=== PATIENT | male | born 1965 | race African-American/Black ===

== ENCOUNTER 2019-10-19 02:54 | Emergency (ER) | payer MEDICARE, OTHER ==
[2019-10-19 03:30] LABS: #Eosinphils 0.1 thou/uL (0.0-0.7); #Lymphocytes 1.6 thou/uL (1.20-3.40); #Monocytes 0.7 thou/uL (0.11-0.59); %Basophils 0.2 % (0.0-1.0); %Eosinophils 0.8 % (0.0-10.0); %Lymphocytes 19.1 % (21.0-51.0); %Monocytes 8.1 % (0.0-10.0); %Neutrophils 71.8 % (42.0-75.0); Hemoglobin 12.7 g/dL (14.0-18.0); Mean Corpuscular HGB CONC 33.7 g/dL (32.0-36.0); Mean Corpuscular Hemoglobin 29.4 pg (27.0-31.0); Mean Corpuscular Volume 87.2 fL (78.0-98.0); Mean Platelet Volume 8.2 fL (7.4-10.4); Platelet Count 282 thou/uL (130-400); RBC Distribution Width 11.8 % (11.5-14.5); Red Blood Cell (RBC) Count 4.31 mill/uL (4.70-6.10); White Blood Cell (WBC) Count 8.3 thou/uL (4.8-10.8)
[2019-10-19 03:44] LABS: ALT (SGPT) 11 U/L (8-55); AST (SGOT) 19 U/L (5-34); Albumin 4.2 g/dL (3.5-5.0); Alkaline Phosphatase 83 U/L (40-110); Anion Gap 13 mmol/L (10-20); BUN (Urea Nitrogen) 15 mg/dL (8.4-25.7); Bilirubin, Total 1.5 mg/dL (0.2-1.2); Calc. Creatinine Clearance 0 mL/min (70-130); Calcium 9.6 mg/dL (7.8-10.44); Carbon Dioxide 20 mmol/L (22-29); Chloride 98 mmol/L (98-107); Estimated GFR-MDRD Greater than 90; Globulin 3.9 g/dL (2.4-3.5); Glucose 100 mg/dL (70-105); Potassium 4.3 mmol/L (3.5-5.1); Protein, Total 8.1 g/dL (6.0-8.3); Sodium 127 mmol/L (136-145)
[2019-10-19] MEDS ORDERED: levETIRAcetam 1000 MG/100 ML PREMIX BAG ONE (04:02)
--- NOTE | 2019-10-19 07:34 | RAD ---
SINGLE VIEW CHEST: Date: 10/19/2019 COMPARISON: 04/10/2014. HISTORY: Stroke with left-sided deficits. FINDINGS: Single view of the chest shows normal sized cardiomediastinal silhouette. There is stable scarring in the mid right thorax. There is no evidence of consolidation, mass, or pleural effusion. IMPRESSION: No evidence of acute cardiopulmonary disease. POS: C
--- NOTE | 2019-10-19 07:54 | CT ---
PRELIMINARY REPORT/[facility]/EMERGENCY AFTER HOURS PROCEDURE: Exam: Unenhanced CT brain. History: ER 12...history obtained from EMS, pt sent to ER due to AMS. NH reported possible syncopal episode fo llowed by AMS; pt normally oriented x2. Per EMS, pt was unresponsive upon their arrival, and he has s lowly become more responsive en route. Pt now able to tell me his name and denies complaints. Pt with previous h/o brain tumor, left sided deficit from CVA. Comparison: None. Findings: Bilateral maxillary sinus mucosal thickening is present. Left temporal frontal parietal craniotomy i s present. Encephalomalacia is present left temporal lobe. Periventricular hypodensities are presen t secondary to small vessel ischemic disease. There is no intracranial hemorrhage. Impression: No acute intracranial abnormality. Chronic small vessel ischemic disease. Postsurgical changes. ELECTRONICALLY SIGNED BY: Slime Gao MD Oct 19, 2019 4:28:16 AM CDT This report is intended for review by the ordering physician only, in accordance of law. If you recei ve this report in error, please call [facility] at [phone]. FINAL REPORT EMERGENCY AFTER HOURS CT BRAIN WITHOUT CONTRAST: FINDINGS/IMPRESSION: I agree with the findings and impression given in the preliminary report per [facility] physici an. No evidence of acute intracranial abnormality.
== END 2019-10-19 05:21 ==
LOC: ERS 02:54 → EDBD 02:54 → ERS 05:21
DX: R41.82 Altered mental status, unspecified (principal); I10 Essential (primary) hypertension; Z79.82 Long term (current) use of aspirin; Z79.899 Other long term (current) drug therapy
CPT/HCPCS: 36416; 70450; 71045; 83605; 84484; 87040; 87149; 87635; 87804; 93005; J1953; U0002

== ENCOUNTER 2019-10-20 06:19 | Inpatient (IN) | payer MEDICARE, MEDICAID, OTHER ==
[2019-10-20] MEDS ORDERED: Lorazepam 2 MG/ML VIAL ONE (06:26)
[2019-10-20] MEDS ORDERED: Vancomycin 1 GM/200 ML BAG ONE (06:44)
[2019-10-20] MEDS ORDERED: Piperacillin/Tazobactam 4.5 GM VIAL ONE (06:44)
[2019-10-20] MEDS ORDERED: Acetaminophen 650 MG Suppository ONE (06:44)
[2019-10-20 07:08] LABS: #Lymphocytes 1.6 thou/uL (1.20-3.40); #Monocytes 0.7 thou/uL (0.11-0.59); #Neutrophils 7.4 thou/uL (1.40-6.50); %Basophils 0.4 % (0.0-1.0); %Eosinophils 0.1 % (0.0-10.0); %Lymphocytes 16.5 % (21.0-51.0); %Monocytes 7.2 % (0.0-10.0); %Neutrophils 75.8 % (42.0-75.0); Hemoglobin 12.5 g/dL (14.0-18.0); Mean Corpuscular HGB CONC 33.9 g/dL (32.0-36.0); Mean Corpuscular Hemoglobin 29.7 pg (27.0-31.0); Mean Corpuscular Volume 87.5 fL (78.0-98.0); Mean Platelet Volume 8.1 fL (7.4-10.4); Platelet Count 276 thou/uL (130-400); RBC Distribution Width 11.8 % (11.5-14.5); Red Blood Cell (RBC) Count 4.22 mill/uL (4.70-6.10); White Blood Cell (WBC) Count 9.7 thou/uL (4.8-10.8)
[2019-10-20 07:25] LABS: ALT (SGPT) 13 U/L (8-55); AST (SGOT) 30 U/L (5-34); Albumin 4.4 g/dL (3.5-5.0); Alkaline Phosphatase 81 U/L (40-110); Anion Gap 16 mmol/L (10-20); BUN (Urea Nitrogen) 19 mg/dL (8.4-25.7); Bilirubin, Total 1.4 mg/dL (0.2-1.2); CK (CPK) 946 U/L (30-200); Calc. Creatinine Clearance 0 mL/min (70-130); Calcium 9.6 mg/dL (7.8-10.44); Carbon Dioxide 21 mmol/L (22-29); Chloride 94 mmol/L (98-107); Estimated GFR-MDRD 77; Globulin 3.9 g/dL (2.4-3.5); Glucose 86 mg/dL (70-105); Lipase 50 U/L (8-78); Potassium 4.3 mmol/L (3.5-5.1); Protein, Total 8.3 g/dL (6.0-8.3); Sodium 127 mmol/L (136-145)
--- NOTE | 2019-10-20 07:46 | RAD ---
SINGLE VIEW CHEST: Date: 10/20/2019 COMPARISON: 10/19/2019. HISTORY: Seizure. Fever. COVID test pending. FINDINGS: Single view of the chest shows normal sized cardiomediastinal silhouette. There is stable scarring in the mid right thorax. There is no evidence of consolidation, mass, or pleural effusion. IMPRESSION: No evidence of acute cardiopulmonary disease. POS: C
[2019-10-20] MEDS ORDERED: levETIRAcetam 1000 MG/100 ML PREMIX BAG ONE (07:54)
[2019-10-20 08:19] LABS: Bilirubin Negative (Negative); Blood, Urine Negative (Negative); Clarity Clear (Clear); Glucose, Urine (Dipstick) Normal (Negative); Leukocyte Negative Leu/uL (Negative); Nitrite Negative (Negative); Protein, Urine (Dipstick) 20 mg/dL (Neg-Trace); Urobilinogen Normal mg/dL (Less than 2)
[2019-10-20 08:31] LABS: Amphetamine Not Detected (NotDetected); Barbiturates Screen Not Detected (NotDetected); Benzodiazepine Screen Not Detected (NotDetected); Cocaine Metabolite Screen Not Detected (NotDetected); Medtox Control Line Valid? VALID (VALID); Medtox Reader # READER 1; Methadone Not Detected (NotDetected); Methamphetamine Not Detected (NotDetected); Opiate Screen Not Detected (NotDetected); Oxycodone Screen Not Detected (NotDetected); Phencyclidine (PCP) Not Detected (NotDetected); THC/Cannabinoid Screen Not Detected (NotDetected); Tricyclic Screen Not Detected (NotDetected)
[2019-10-20] MEDS ORDERED: Lorazepam 2 MG/ML VIAL SLOW IVP PRN (09:59)
[2019-10-20] MEDS ORDERED: Dextrose 50% Abboject 50 ML SYRINGE SLOW IVP PRN (10:10)
[2019-10-20] MEDS ORDERED: Dextrose 5% in Water 1,000 ML IV PRN (10:10)
[2019-10-20 10:53] VITALS: BMI 20.8
[2019-10-20] MEDS: Sodium Chloride 0.9% 1,000 ML IV SCH ×2 (11:43→22:53)
--- NOTE | 2019-10-20 12:07 | HP ---
H&P based on ED report since patient is somnolent on encounter HISTORY OF PRESENT ILLNESS: Mr. Albarran is a 54-year-old male with a medical history of brain tumor status post resection (years ago), seizures, hypertension, and hypoglycemia, who presents with a seizure. The patient came to the ED yesterday after his snf transferred him for a seizure. The had conversation with nurse and said that patient has been seizure free for years after brain tumor resection (requires confirmation). Per the snf, the patient had a syncopal like event followed by altered mental state. At the time, the ED started him on Keppra 500 mg oral and sent him back to the snf. The patient presented again earlier today due to seizure activity. On arrival, had generalized tonic clonic seizure with postictal confusion. Had a generalized tonic-clonic seizure in all extremities during which he was not following commands. On encounter, the patient is lying comfortably in bed and appears sedated ED COURSE: In the ED, the patient was treated with Keppra 1 g IV and Ativan 2 mg IV after which the seizure stopped. He was also given vancomycin and Zosyn and was admitted to the stroke unit for further management. REVIEW OF SYSTEMS: could not be carried out because the patient is somnolent PAST MEDICAL HISTORY: Brain tumor that was resected years ago, hypertension, hypoglycemia. PAST SURGICAL HISTORY: Craniotomy. SOCIAL HISTORY: No alcohol, tobacco, or recreational drug use ALLERGIES: NO KNOWN DRUG ALLERGIES. CURRENT MEDICATIONS: 1. Aspirin 81 mg p.o. daily. 2. Atorvastatin 40 mg p.o. daily 3. started Keppra 500 mg p.o. b.i.d. the day prior to presentation, adherence unknown. PHYSICAL EXAMINATION: VITAL SIGNS: The patient had a blood pressure of 105/87, pulse 97, respiratory rate 18, temperature 102.5 rectal, and O2 saturation 100% on room air. GENERAL: No apparent distress. HEENT: Atraumatic, normocephalic. PERRL (equal reaction from 4mm to 2mm with light) NECK: No neck stiffness appreciated. No cervical or submandibular, periauricular lymphadenopathy. CHEST: Clear to auscultation bilaterally. No rales, wheezing, or rhonchi. CARDIOVASCULAR: Regular rate and rhythm. No murmurs, gallops, or rubs. ABDOMEN: Nontender. Normal bowel sounds. No distention. EXTREMITIES: could not evaluate NEUROLOGIC: somnolent, withdraws to pain LABORATORY DATA AND IMAGING STUDIES: Reviewed. CT head showed no acute intracranial process. Chest x-ray showed no acute cardiopulmonary process. ASSESSMENT AND PLAN: Mr. Albarran is a 54-year-old male with medical history of brain tumor status post resection years ago, seizures, hypoglycemia, and hypertension , who presented with a breakthrough seizure. 1. Breakthrough seizure. a. The patient presented in the ED with a generalized tonic-clonic seizure. b. Presented yesterday with reported seizure, was started on Keppra; however, adherence is unknown. c. In the ED today, was administered Keppra 1000 mg IV once and Ativan 2 mg once and seizures resolved, had a postictal period of unknown duration. d. Plan: I. Continue the patient on Keppra 1000 mg IV b.i.d. II. Ativan 2 mg IVP q.15 minutes p.r.n. seizure activity. III. Consult Neurology. -patient appears oversedated; if alertness does not improve within 3-4 hours, brain MRI with and without contrast 2. Fever and rhabdomyolysis. a. had rectal temperature of 102.5 in ED b. Plan: -started vanc,rocephin, and ampicillin; preferably would have lumbar tap but due to COVID rule out, will treat empirically and follow I. IV fluid to prevent acute kidney injury as a result of rhabdomyolysis. II. continue to follow vitals and we will wait for infectious workup that was started by the ED. 3. History of hypoglycemia. a. check glucose q.4 hours while the patient is n.p.o. 4. Disposition/prophylaxis. a. The patient is full code. 5. Deep venous thrombosis prophylaxis, enoxaparin. 6. Gastrointestinal prophylaxis not indicated at this time. Estimated length of stay, two midnights. Job ID: [id number] [facility]
[2019-10-20] MEDS ORDERED: Acetaminophen ER (8hr) 650 MG TAB PO PRN (13:32)
[2019-10-20] MEDS ORDERED: Vancomycin 2 GM in Premix Bag 1 BAG IVPB SCH (13:45)
[2019-10-20] MEDS: cefTRIAXone\\ROCEPHIN 2 GM in Sodium Chloride 0.9% 100 ML IVPB SCH (14:10)
--- NOTE | 2019-10-20 14:10 | PDOC.EVN ---
Event Note - Event Note Event Note: Patient apparently had a recent stroke
[2019-10-20] MEDS: Ampicillin 2 GM in Sodium Chloride 0.9% 100 ML IVPB SCH ×2 (14:57→22:23)
[2019-10-20] MEDS: Vancomycin HCl 1.25 GM in Sodium Chloride 0.9% 250 ML 250 ML IVPB SCH (19:53)
[2019-10-20] MEDS: levETIRAcetam In NaCl (Iso-Os) 1,000 MG in Premix Bag 1 BAG IVPB SCH (21:52)
[2019-10-21] MEDS: cefTRIAXone\\ROCEPHIN 2 GM in Sodium Chloride 0.9% 100 ML IVPB SCH ×2 (02:13→15:51)
[2019-10-21] MEDS: Ampicillin 2 GM in Sodium Chloride 0.9% 100 ML IVPB SCH ×3 (02:51→16:58)
[2019-10-21 05:17] LABS: #Lymphocytes 1.4 thou/uL (1.20-3.40); #Monocytes 0.5 thou/uL (0.11-0.59); #Neutrophils 5.2 thou/uL (1.40-6.50); %Basophils 0.3 % (0.0-1.0); %Eosinophils 0.2 % (0.0-10.0); %Lymphocytes 19.8 % (21.0-51.0); %Monocytes 6.9 % (0.0-10.0); %Neutrophils 72.8 % (42.0-75.0); Hemoglobin 11.1 g/dL (14.0-18.0); Mean Corpuscular HGB CONC 34.4 g/dL (32.0-36.0); Mean Corpuscular Hemoglobin 29.8 pg (27.0-31.0); Mean Corpuscular Volume 86.6 fL (78.0-98.0); Mean Platelet Volume 8.1 fL (7.4-10.4); Platelet Count 198 thou/uL (130-400); RBC Distribution Width 11.6 % (11.5-14.5); Red Blood Cell (RBC) Count 3.73 mill/uL (4.70-6.10); White Blood Cell (WBC) Count 7.1 thou/uL (4.8-10.8)
[2019-10-21 05:33] LABS: Anion Gap 14 mmol/L (10-20); BUN (Urea Nitrogen) 18 mg/dL (8.4-25.7); Calc. Creatinine Clearance 100 mL/min (70-130); Calcium 8.3 mg/dL (7.8-10.44); Carbon Dioxide 18 mmol/L (22-29); Chloride 101 mmol/L (98-107); Estimated GFR-MDRD Greater than 90; Glucose 80 mg/dL (70-105); Magnesium 2.2 mg/dL (1.6-2.6); Potassium 3.8 mmol/L (3.5-5.1); Sodium 129 mmol/L (136-145)
[2019-10-21] MEDS ORDERED: Polyethylene Glycol 3350 17 GM Packet PO SCH (09:00)
[2019-10-21] MEDS ORDERED: Atorvastatin Calcium 40 MG TAB PO SCH (09:00)
[2019-10-21] MEDS ORDERED: Aspirin 81 mg Enteric Coated Tablet PO SCH (09:00)
[2019-10-21] MEDS: Enoxaparin Sodium 30 MG/0.3 ML SYRINGE SC SCH (09:11)
[2019-10-21] MEDS: Sodium Chloride 0.9% 1,000 ML IV SCH (09:14)
[2019-10-21] MEDS ORDERED: Sodium Chloride 0.9% 1,000 ML IV SCH (10:55)
[2019-10-21] MEDS: levETIRAcetam In NaCl (Iso-Os) 1,000 MG in Premix Bag 1 BAG IVPB SCH ×2 (12:04→21:04)
[2019-10-21] MEDS ORDERED: Vancomycin HCl 1.25 GM in Sodium Chloride 0.9% 250 ML 250 ML IVPB SCH (13:00)
[2019-10-21] MEDS: Vancomycin HCl 1.25 GM in Sodium Chloride 0.9% 250 ML 250 ML IVPB SCH (13:45)
--- NOTE | 2019-10-21 14:08 | CON ---
DATE OF CONSULTATION: 10/21/2019 CONSULTING PHYSICIAN: Hospitalist Services. IMPRESSION: 1. New-onset seizure secondary to prior stroke. 2. Previous stroke with left hemiparesis. 3. Lung cancer. 4. Chronic low back pain. 5. Chronic obstructive pulmonary disease. PLAN: 1. Continue Keppra 1000 mg twice a day. 2. The patient can be transferred back to the detention for rehab. HISTORY OF PRESENT ILLNESS: Mr. Albarran is a 54-year-old man, who apparently was a recent admission to [facility] for an acute right MCA stroke. He was transferred to detention. He apparently had a witnessed seizure and was brought into the hospital. His CT scan of the brain did not show any acute changes. Records were obtained from [facility], which reportedly showed evidence of some right MCA ischemic injury. He denies a history of tobacco or illicit drug use. He reports that he is feeling fine. At this point, he did not have any particular complaints. PAST MEDICAL HISTORY: As listed above. ALLERGIES: NONE. SOCIAL HISTORY: Negative for tobacco or alcohol. FAMILY HISTORY: Noncontributory. REVIEW OF SYSTEMS: Ten-system review of systems is otherwise negative. PHYSICAL EXAMINATION: VITAL SIGNS: Blood pressure 117/74, pulse 85, respirations 24, and temperature 98.2. HEENT: Pupils are equal. Conjunctivae are clear. Oropharynx clear. Cranium; normocephalic and atraumatic. NECK: Supple. EXTREMITIES: No cyanosis. NEUROLOGIC: He was alert and cooperative. His speech was mildly dysarthric. He had a left facial droop. He had minimal antigravity strength in the left arm and leg. Sensation was subjectively intact. No abnormal movements were seen. He was able to take two steps with a roller walker in maximum assist. LABORATORY STUDIES: Unremarkable CBC, serum chemistries, urinalysis, and toxicology screen. SUMMARY: This is a middle-age man with recurrent seizure secondary to his prior stroke. I agree with current management. I would be happy to follow up with him as an outpatient. Job ID: [id number]
[2019-10-21] MEDS ORDERED: Acetaminophen 650 MG Suppository PR PRN (19:00)
[2019-10-21] MEDS ORDERED: Dextrose 5 % And 0.9 % NaCl 1,000 ML IV SCH (19:15)
--- NOTE | 2019-10-21 22:02 | PDOC.HOSPP ---
- Subjective Encounter Date: 10/21/19 Encounter Time: 10:00 Subjective: overnight, significant improvement in alertness and responsiveness. Patient has no complaints. no additional seizure activity since admission - Objective Vital Signs & Weight: Vital Signs (12 hours) Temp Pulse Pulse Pulse Resp BP BP 10/21/19 19:35 98.3 F 81 14 10/21/19 15:45 98.8 F 81 10/21/19 12:30 10/21/19 11:45 84 83 118/73 131/75 10/21/19 11:26 98.2 F 85 24 H BP Pulse Ox Pulse Ox Pulse Ox 10/21/19 19:35 112/56 L 96 10/21/19 15:45 108/64 10/21/19 12:30 100 10/21/19 11:45 100 100 10/21/19 11:26 117/74 100 Weight Admit Weight 149 lb 9.6 oz Weight 149 lb 9.6 oz I&O: 10/20/19 10/21/19 10/22/19 06:59 06:59 06:59 Intake Total 2371 0 Output Total 850 Balance 2371 -850 Result Diagrams: 10/21/19 04:53 10/21/19 04:53 Additional Labs: Accuchecks 10/21/19 10/21/19 10/21/19 20:38 16:37 12:15 POC Glucose 73 63 L 68 L 10/21/19 10/21/19 10/20/19 09:07 03:56 23:34 POC Glucose 73 77 78 10/20/19 20:14 POC Glucose 82 Hospitalist ROS - Review of Systems Constitutional: denies: fever, chills, sweats, weakness, malaise, other Respiratory: denies: cough, dry, shortness of breath, hemoptysis, SOB with excertion, pleuritic pain, sputum, wheezing, other Cardiovascular: denies: chest pain, palpitations, orthopnea, paroxysmal noc. dyspnea, edema, light headedness, other Gastrointestinal: denies: nausea, vomiting, abdominal pain, diarrhea, constipation, melena, hematochezia, other Genitourinary: denies: dysuria, frequency, incontinence, hematuria, retention, other - Medication Medications: Active Medications Generic Name Dose Route Start Last Admin Trade Name Freq PRN Reason Stop Dose Admin Aspirin 81 mg 10/21/19 09:00 10/21/19 09:11 Ecotrin PO Not Given DAILY RAMIN Atorvastatin Calcium 40 mg 10/21/19 09:00 10/21/19 09:11 Lipitor PO Not Given DAILY RAMIN Dextrose/Water 25 gm 10/20/19 10:10 10/21/19 16:58 Dextrose 50% SLOW IVP 25 gm PRN PRN Administration Hypoglycemia Enoxaparin Sodium 30 mg 10/21/19 09:00 10/21/19 09:11 Lovenox SC 30 mg 0900 RAMIN Administration Levetiracetam 1,000 mg/ Device 100 mls @ 200 mls/hr 10/20/19 21:00 10/21/19 21:04 IVPB 100 mls BID RAMIN Administration Dextrose/Sodium Chloride 1,000 mls @ 75 mls/hr 10/21/19 19:15 10/21/19 20:46 D5 0.9% Ns IV 1,000 mls .[id number] RAMIN Administration Polyethylene Glycol 17 gm 10/21/19 09:00 10/21/19 09:13 Miralax PO Not Given DAILY [facility] Sodium Chloride 10 ml 10/20/19 21:00 10/21/19 20:47 Flush - Normal Saline IVF Not Given Q12HR RAMIN - Exam General Appearance: NAD, awake alert Eye: PERRL, anicteric sclera Neck: no JVD Heart: RRR, no murmur, no gallops, no rubs Respiratory: CTAB, no wheezes, no rales, no ronchi Gastrointestinal: soft, non-tender, non-distended, normal bowel sounds Extremities: no edema Neurological: normal sensation to touch, facial droop Neurological - other findings: left facial droop and asymmetric smile Musculoskeletal - other findings: right upper and lower extremity 5/5; left UE 2 /5, LLE: 4/5 Psychiatric: normal affect, normal behavior, A&O x 3 Hosp A/P - Plan per speech and swallow, despite improvement still risk for aspiration as of AM, should continue NPO pending neurology evaluation meanwhile continue keppra 1000mg IV bid discharge pending neurology evaluation otherwise management unchanged
--- NOTE | 2019-10-21 22:09 | PDOC.EVN ---
Event Note - Event Note Event Note: Neurology cleared patient however patient had several bowel movements and per nurse, failed bedside swallow. Nurse discussed possibility of administering D5W parenterally in rehab, which is possible, but not keppra. On exam in late PM, patient continues to improve, lying comfortably in bed, alertness and dysarthria significantly improved compared to AM. will reevaluate tomorrow.
[2019-10-22 06:00] LABS: Anion Gap 10 mmol/L (10-20); BUN (Urea Nitrogen) 12 mg/dL (8.4-25.7); Calc. Creatinine Clearance 111 mL/min (70-130); Calcium 8.5 mg/dL (7.8-10.44); Carbon Dioxide 22 mmol/L (22-29); Chloride 107 mmol/L (98-107); Estimated GFR-MDRD Greater than 90; Glucose 89 mg/dL (70-105); Magnesium 2.3 mg/dL (1.6-2.6); Potassium 3.8 mmol/L (3.5-5.1); Sodium 135 mmol/L (136-145)
[2019-10-22] MEDS: levETIRAcetam In NaCl (Iso-Os) 1,000 MG in Premix Bag 1 BAG IVPB SCH (09:58)
[2019-10-22] MEDS: Enoxaparin Sodium 30 MG/0.3 ML SYRINGE SC SCH (09:58)
[2019-10-22] MEDS ORDERED: levETIRAcetam 500 MG TAB PO SCH ×2 (11:00→21:00)
[2019-10-22 12:07] VITALS: BP 121/75; TEMP 99.7
--- NOTE | 2019-10-23 14:38 | DIS ---
DATE OF ADMISSION: 10/20/2019 DATE OF DISCHARGE: 10/22/2019 HOSPITAL COURSE: Mr. Albarran is a 54-year-old male with medical history of brain tumor, status post resection (years ago); seizures; hypertension, has been elevated, presented with a seizure. The patient was diagnosed with breakthrough seizure due to prior stroke the week prior to presentation. Neurology was consulted and the patient's Keppra was increased from 500 mg b.i.d. to 1000 mg b.i.d. The patient did not have additional seizure episodes after being admitted. Even though, he had postictal confusion and weakness that has resolved and he returned to baseline. His ability to eat food was assessed prior to discharge and he tolerated oral diet well. He was discharged back to his rehab facility. PHYSICAL EXAMINATION: VITAL SIGNS: Blood pressure was 124/85, pulse 89, respiratory rate 16, oxygen saturation 95% on room air, and temperature was 99.7 Fahrenheit oral. GENERAL: No apparent distress. Awake and alert. HEENT: Eyes exam, PERRL. Anicteric sclerae. NECK: No JVD. HEART: Regular rate and rhythm. No murmur. No gallops. No rubs. RESPIRATORY: Clear to auscultation bilaterally. No wheezes, rales, or rhonchi. GI: Soft, nontender, nondistended. Normal bowel sounds. EXTREMITIES: No edema. NEUROLOGIC: Cranial nerves intact with the exception of left facial droop and asymmetric smile that improved on the day of discharge, also had left upper extremity strength of 2/5, left lower extremity of 4/5, right upper and lower extremities were 5/5 throughout. PSYCHIATRIC: Normal affect and behavior. Alert and oriented x3. MEDICATIONS ON DISCHARGE: Modified medications Keppra 1000 mg b.i.d., increased from 500 mg p.o. b.i.d. Continued medications, 1. Glucagon p.r.n. 2. Bisacodyl. 3. Calcium carbonate. 4. Clonidine. 5. Guaifenesin DM p.r.n. 6. Lactulose. 7. Loperamide p.r.n. 8. Aspirin. 9. Acetaminophen p.r.n. 10. MiraLAX. 11. Atorvastatin. 12. Dextrose 50% p.r.n. hypoglycemia. DISCONTINUED MEDICATIONS: 1. Benzocaine/menthol. 2. Benadryl. 3. Milk of magnesia. Job ID: [id number]
--- NOTE | 2019-10-25 09:20 | EKG ---
Test Reason : Blood Pressure : / mmHG Vent. Rate : 093 BPM Atrial Rate : 093 BPM P-R Int : 132 ms QRS Dur : 078 ms QT Int : 314 ms P-R-T Axes : 067 052 069 degrees QTc Int : 390 ms Normal sinus rhythm Possible Left atrial enlargement Nonspecific ST and T wave abnormality Abnormal ECG Confirmed by YVONNE MORRIS ([id number]), technical editor RICKI GRAYSON ([id number]) on 10/25/2019 9:20:18 AM Referred By: Confirmed By:YVONNE MORRIS
== END 2019-10-22 14:08 | DRG 57 ==
LOC: ERS 06:19 → 2SW 08:01
PROVIDERS: ADMIT Internal Medicine; ATTEND Internal Medicine
DX: I69.398 Other sequelae of cerebral infarction (principal); M62.82 Rhabdomyolysis; I69.354 Hemiplegia and hemiparesis following cerebral infarction affecting left non-dominant side; C34.90 Malignant neoplasm of unspecified part of unspecified bronchus or lung; G40.409 Other generalized epilepsy and epileptic syndromes, not intractable, without status epilepticus; I10 Essential (primary) hypertension; G89.29 Other chronic pain; J44.9 Chronic obstructive pulmonary disease, unspecified; R47.1 Dysarthria and anarthria
CPT/HCPCS: 36415; 36416; 70450; 71045; 80048; 80053; 80306; 81003; 82550; 83605; 83690; 83735; 84484; 85025; 87040; 87149; 87635; 87804; 93005; J0290; J0696; J1650; J1953; J2060; J2543; J3370; J3490; J7050; U0002